=== PATIENT | female | born 1975 | race Caucasian/White ===

== ENCOUNTER 2017-10-31 14:44 | Emergency (ER) | payer MEDICAID ==
[~2017-10-31] VITALS: Ht 157.5 cm; Wt 59.0 kg
[2017-10-31] MEDS ORDERED: IBUP-1492 PO (15:03)
--- NOTE | 2017-10-31 15:19 | NUR ---
ULTRA SOUND TECH PHONED BY 15:17
[2017-10-31 15:21] LABS: *BILIRUBIN,URIN NEGATIVE (NEGATIVE); *BLOOD, URINE 2+ (NEGATIVE); *CLARITY,URINE SLIGHTLY CLOUDY (CLEAR); *COLOR,URINE YELLOW (YELLOW); *KETONES,URINE TRACE (NEGATIVE); *PROTEIN,URINE NEGATIVE (NEGATIVE); *UROBILINOGEN,URINE 0.2 E.U./dl (NORMAL); LEUKOCYTE ESTERASE ,URINE 1+ (NEGATIVE); NITRITE, URINE NEGATIVE (NEGATIVE); PH,URINE 5.5 (5.0-8.0); UGLUCOSE NEGATIVE (NEGATIVE)
[2017-10-31 15:23] LABS: *URINE HCG, QUAL NEGATIVE (NEGATIVE)
[2017-10-31 15:27] LABS: BACTERIA,URINE MODERATE /HPF (NONE SEEN); SQUAMOUS EPITHELIAL CELL,UR MANY /HPF (NONE SEEN)
[2017-10-31 15:28] LABS: MUCUS,URINE MODERATE /LPF (0-FEW)
[2017-10-31] MEDS ORDERED: SULFAMETH/TRIMETH 800/160 MG TABLET PO ONE (15:45)
[2017-10-31] MEDS ORDERED: SULFAMETH/TRIMETH 800/160 MG TABLET ONE (15:50)
--- NOTE | 2017-10-31 16:02 | NUR ---
Patient is resting comfortably on gurney while using her electronic device, pending U/S scanning at this time. Por[employer] Sprayer Didier's DIT=[id number] per radiology staff
--- NOTE | 2017-10-31 16:41 | NUR ---
Patient discharged to home in stable conditon. Written and verbal after care instructions given to patient. Patient verbalizes understanding of instructions.
== END 2017-10-31 16:41 | disposition home or self-care (01) ==
LOC: ER 14:44
DX: N39.0 Urinary tract infection, site not specified (principal); Z79.1 Long term (current) use of non-steroidal anti-inflammatories (NSAID)
CPT/HCPCS: 76856; 84703; 87086; A4663

== ENCOUNTER 2017-11-04 16:48 | Emergency (ER) | payer MEDICAID ==
[~2017-11-04] VITALS: Ht 157.5 cm; Wt 59.0 kg
[~2017-11-04 16:48] MED LIST: IBUP-1492 PO
[2017-11-04 17:28] LABS: *BILIRUBIN,URIN NEGATIVE (NEGATIVE); *BLOOD, URINE Trace-lysed (NEGATIVE); *CLARITY,URINE CLEAR (CLEAR); *COLOR,URINE YELLOW (YELLOW); *KETONES,URINE NEGATIVE (NEGATIVE); *PROTEIN,URINE NEGATIVE (NEGATIVE); *UROBILINOGEN,URINE 0.2 E.U./dl (NORMAL); LEUKOCYTE ESTERASE ,URINE NEGATIVE (NEGATIVE); NITRITE, URINE NEGATIVE (NEGATIVE); PH,URINE 5.5 (5.0-8.0); UGLUCOSE NEGATIVE (NEGATIVE)
[2017-11-04 17:29] LABS: *URINE HCG, QUAL NEGATIVE (NEGATIVE)
[2017-11-04 17:35] LABS: BACTERIA,URINE FEW /HPF (NONE SEEN); RBC,URINE 0-3 /HPF (0-3); SQUAMOUS EPITHELIAL CELL,UR MODERATE /HPF (NONE SEEN)
--- NOTE | 2017-11-04 17:49 | NUR ---
Dr Galarza at the bedside for MSE.
--- NOTE | 2017-11-04 18:25 | NUR ---
Pt out of ER for xray.
--- NOTE | 2017-11-04 18:35 | NUR ---
Pt back from xray.
[2017-11-04 19:02] VITALS: BP 122/87
--- NOTE | 2017-11-04 19:03 | NUR ---
Patient discharged to home in stable conditon. Written and verbal after care instructions given. Patient verbalizes understanding of instructions.
== END 2017-11-04 19:03 | disposition home or self-care (01) ==
LOC: ER 16:49
DX: M54.5 Low back pain (principal); K12.0 Recurrent oral aphthae; Z79.1 Long term (current) use of non-steroidal anti-inflammatories (NSAID)
CPT/HCPCS: 72100; 72170; 81001; 84703; 99285; A4663